=== PATIENT | male | born 1980 | race African-American/Black ===

== ENCOUNTER 2020-07-13 15:47 | Outpatient (CLI) | payer BC | END 2020-07-13 23:59 | disposition home or self-care (01) | LOC: STAR 15:47 | PROVIDERS: ATTEND Anesthesiology | DX: Z01.812 Encounter for preprocedural laboratory examination (principal); Z20.828 Contact with and (suspected) exposure to other viral communicable diseases | CPT/HCPCS: 36415; 87635 ==

== ENCOUNTER 2020-07-21 09:57 | Day surgery (SDC) | payer BC ==
[~2020-07-21] VITALS: Ht 170.2 cm; Wt 76.3 kg
[2020-07-21] MEDS ORDERED: LACTATED RINGERS 1,000 ML IV SCH (10:19)
[2020-07-21 10:24] VITALS: BP 133/94
[2020-07-21] MEDS ORDERED: CHLORHEXIDINE 15 ML UDC MM ONE (10:30)
[2020-07-21] MEDS ORDERED: NO MEDS PER PT (10:42)
[2020-07-21] MEDS ORDERED: ONDANSETRON 2MG/ML, 2ML ONE (11:28)
[2020-07-21] MEDS ORDERED: SUCCINYLCHOLINE 20 MG/ML, 10ML ONE (11:28)
[2020-07-21] MEDS ORDERED: PROPOFOL 10 MG/ML, 20ML ONE (11:28)
[2020-07-21] MEDS ORDERED: DEXAMETHASONE 4 MG/ML, 1ML ONE (11:28)
[2020-07-21] MEDS ORDERED: MIDAZOLAM 1 MG/ML, 2ML ONE (11:32)
[2020-07-21] MEDS ORDERED: FENTANYL PF 100 MCG/2ML ONE ×2 (11:52→12:23)
[2020-07-21] MEDS ORDERED: OXYcodone 5 MG/5 ML ORAL.SOL UDC PO PRN (12:00)
[2020-07-21] MEDS ORDERED: FENTANYL PF 100 MCG/2ML IV PRN (12:00)
[2020-07-21] MEDS ORDERED: PROMETHAZINE 25 MG/ML, 1ML IVPush PRN (12:00)
[2020-07-21] MEDS ORDERED: HYDROmorphone 1 MG/ML, 1ML INJ IVPush PRN (12:00)
[2020-07-21] MEDS ORDERED: DIPHENHYDRAMINE 50 MG/ML, 1ML IVPush PRN (12:00)
[2020-07-21] MEDS ORDERED: MEPERIDINE/PF 25MG/0.5ML IVPush PRN (12:00)
[2020-07-21] MEDS ORDERED: EPHEDRINE 50 MG/ML, 1ML IVPush PRN (12:00)
[2020-07-21] MEDS ORDERED: ALBUTEROL SULFATE 2.5 MG/3 ML NPPB PRN (12:00)
[2020-07-21] MEDS ORDERED: MIDAZOLAM 1 MG/ML, 2ML IV PRN (12:00)
[2020-07-21] MEDS ORDERED: DIAZEPAM 5 MG/ML, 2ML IVPush PRN (12:00)
[2020-07-21] MEDS ORDERED: ONDANSETRON 2MG/ML, 2ML IVPush PRN (12:00)
[2020-07-21] MEDS ORDERED: PROMETHAZINE 12.5 MG SUPP PR PRN (12:00)
[2020-07-21] MEDS ORDERED: hydrALAzine 20 MG/ML, 1ML IV PRN (12:00)
[2020-07-21] MEDS ORDERED: LABETALOL 5MG/ML, 20ML IV PRN (12:00)
== END 2020-07-21 14:48 | disposition home or self-care (01) ==
LOC: OUT 09:57
PROVIDERS: ATTEND Internal Medicine
DX: K22.0 Achalasia of cardia (principal); T18.128A Food in esophagus causing other injury, initial encounter; Z20.828 Contact with and (suspected) exposure to other viral communicable diseases; R13.10 Dysphagia, unspecified; Z91.013 Allergy to seafood; X58.XXXA Exposure to other specified factors, initial encounter; Y93.89 Activity, other specified; Y92.89 Other specified places as the place of occurrence of the external cause; Y99.8 Other external cause status
CPT/HCPCS: 43247; 43248; 71045; 74360; 87635; J0330; J1100; J2250; J2405; J2704; J3010; J7120; 76000